=== PATIENT | male | born 1990 | race Caucasian/White ===

== ENCOUNTER 2019-12-11 09:47 | Emergency (ER) | payer BC ==
[2019-12-11 09:53] VITALS: RESP 18
--- NOTE | 2019-12-11 10:31 | ED ---
URI HPI - General Chief Complaint: Upper Respiratory Infection Stated Complaint: bronchitis/sinus infection Time Seen by Provider: 12/11/19 09:58 Source: patient Mode of arrival: ambulatory Limitations: no limitations - History of Present Illness Initial Comments: Patient is a 38-year-old male presenting to emergency Department with complaints of upper respiratory infection 4 days. Patient states he went to his PCP 2 days ago was started on a Z-Fercho and steroids for bronchitis however his symptoms have progressed. He continues to have shortness of breath and is coughing throughout the day. Patient states he has had a hard time sleeping secondary to the cough. He's been having intermittent hot flashes and chills. He denies any chest pains, nausea, vomiting, abdominal pain. He denies history of asthma or COPD. He denies being a smoker. He has no other complaints at this time. Upon arrival to the ER, patient is a tachycardia at 129, rest of vitals normal. - Related Data Previous Rx's Medication Instructions Recorded Albuterol Inhaler [Ventolin Hfa 1 - 2 puff INHALATION RT-Q6H PRN 12/11/19 Inhaler] #1 inhaler Allergies Allergy/AdvReac Type Severity Reaction Status Date / Time No Known Allergies Allergy Verified 12/11/19 09:50 Review of Systems ROS Statement: Those systems with pertinent positive or pertinent negative responses have been documented in the HPI. ROS Other: All systems not noted in ROS Statement are negative. Past Medical History Past Medical History: Asthma History of Any Multi-Drug Resistant Organisms: None Reported Past Surgical History: Cholecystectomy Past Psychological History: No Psychological Hx Reported Smoking Status: Never smoker Past Alcohol Use History: Occasional Past Drug Use History: None Reported General Exam - General Exam Comments Initial Comments: GENERAL: Well-appearing, well-nourished and in no acute distress. HEAD: Atraumatic, normocephalic. EYES: Pupils equal round and reactive to light, extraocular movements intact, sclera anicteric, conjunctiva are normal. ENT: TMs normal, nares patent, oropharynx clear without exudates. Moist mucous me mbranes. NECK: Normal range of motion, supple without lymphadenopathy or JVD. LUNGS: Breath sounds clear to auscultation bilaterally and equal. No wheezes rales or rhonchi. HEART: Tachycardic rate and rhythm without murmurs, rubs or gallops. ABDOMEN: Soft, nontender, normoactive bowel sounds. No guarding, no rebound. No masses appreciated. : Deferred EXTREMITIES: Normal range of motion, no pitting or edema. No clubbing or cyanosis. NEUROLOGICAL: Normal speech, normal gait. PSYCH: Normal mood, normal affect. SKIN: Warm, Dry, normal turgor, no rashes or lesions noted. Limitations: no limitations Course Vital Signs 12/11/19 12/11/19 09:50 11:36 Temperature 98.6 F 98.4 F Pulse Rate 129 H 106 H Respiratory 18 18 Rate Blood Pressure 123/64 119/71 O2 Sat by Pulse 96 98 Oximetry Medical Decision Making - Medical Decision Making Patient is a 29-year-old male presenting with cough for 4 days. Patient was seen by his PCP 2 days ago was started on azithromycin and steroids with no improvement in symptoms. Patient was tachycardia upon arrival, rest of vitals normal. Chest x-ray shows no acute abnormalities. Influenza is positive. I discussed these findings with the patient. Patient will discontinue use of antibiotic. He will continue with steroids and will be given a prescription for an inhaler to use as needed for cough and shortness of breath. He is in agreement with this plan of care. vitals are improved. He stable for discharge at this time. Return parameters were discussed with the patient he verbalizes understanding. Case discussed with Dr. Maloney. - Lab Data Lab Results 12/11/19 Range/Units 10:23 Influenza Type A RNA Not Detected (Not Detectd) Influenza Type B (PCR) Detected H (Not Detectd) Disposition Clinical Impression: Influenza Disposition: HOME SELF-CARE Condition: Stable Instructions (If sedation given, give patient instructions): Influenza (ED) Additional Instructions: Please return to the Emergency Department if symptoms worsen or any other concerns. Continue with steroids. Discontinue antibiotic. Use inhaler as needed for cough or shortness of breath. Prescriptions: Albuterol Inhaler [Ventolin Hfa Inhaler] 1 - 2 puff INHALATION RT-Q6H PRN #1 inhaler PRN Reason: Shortness Of Breath Is patient prescribed a controlled substance at d/c from ED?: No Referrals: Vinny Whitfield MD [Primary Care Provider] - 1-2 days
--- NOTE | 2019-12-11 10:57 | XR ---
EXAMINATION TYPE: XR chest 2V DATE OF EXAM: 12/11/2019 HISTORY: cough, fever. REFERENCE: Previous study dated 11/07/2016. FINDINGS: Lungs remain clear. There is some pleural thickening in the right apex. Pleural spaces are otherwise clear. Heart size is normal. No effusions are seen. IMPRESSION: NO ACUTE INTRATHORACIC ABNORMALITY.
[2019-12-11 11:37] VITALS: BP 119/71; PULSE 106; TEMP 98.4
== END 2019-12-11 11:37 | disposition home or self-care (01) ==
LOC: EC 09:47
DX: J11.1 Influenza due to unidentified influenza virus with other respiratory manifestations (principal)
CPT/HCPCS: 71046; 87502; 99283

== ENCOUNTER 2021-01-12 19:19 | Emergency (ER) | payer BC, OTHER ==
[2021-01-12 19:25] VITALS: TEMP 98.3
--- NOTE | 2021-01-12 19:47 | ED ---
Lower Extremity Injury HPI - General Chief Complaint: Extremity Injury, Lower Stated Complaint: IHS-toe injury Time Seen by Provider: 01/12/21 19:27 Source: patient Mode of arrival: ambulatory Limitations: no limitations - History of Present Illness Initial Comments: Dar is a 30-year-old male who presents the ER today for evaluation of injury to the left great toe. Patient reports he was at work when a spool of wire weighing nearly 1000 pounds fell landing on his foot. Patient was wearing steel toed boots. Patient reports he was able to work for approximately another half an hour but began feeling some throbbing in the home, he took of his boot and found that he was bleeding. He noted that his toenail seem to be partially avulsed. Because this was a work-related injury he was advised he needed to come to the emergency department for evaluation. - Related Data Previous Rx's Medication Instructions Recorded Albuterol Inhaler (Mhu) [Ventolin 1 - 2 puff INHALATION RT-Q6H PRN 12/11/19 Hfa Inhaler] #1 inhaler Allergies Allergy/AdvReac Type Severity Reaction Status Date / Time No Known Allergies Allergy Verified 01/12/21 19:24 Review of Systems ROS Statement: Those systems with pertinent positive or pertinent negative responses have been documented in the HPI. ROS Other: All systems not noted in ROS Statement are negative. Past Medical History Past Medical History: Asthma History of Any Multi-Drug Resistant Organisms: None Reported Past Surgical History: Cholecystectomy Past Psychological History: No Psychological Hx Reported Smoking Status: Never smoker Past Alcohol Use History: Occasional Past Drug Use History: None Reported General Exam - General Exam Comments Initial Comments: Physical Exam GENERAL: Patient is well-developed and well-nourished. Patient is nontoxic and well-hydrated and is in no distress. HENT: Normocephalic, Atraumatic. EYES: PERRL, EOMI PULMONARY: Unlabored respirations. CARDIOVASCULAR: RRR Warm and well perfused extremities ABDOMEN: Non-distended SKIN: No rashes or bruising Left great toenail partially avulsed, no active bleeding, : Deferred NEUROLOGIC: Alert and oriented Normal speech Normal gait MUSCULOSKELETAL: Moving all extremities with no apparent injury PSYCHIATRIC: No SI/HI Limitations: no limitations Course Vital Signs 01/12/21 19:22 Temperature 98.3 F Pulse Rate 78 Respiratory 20 Rate Blood Pressure 155/65 O2 Sat by Pulse 99 Oximetry Medical Decision Making - Medical Decision Making X-ray was obtained to rule out open fracture, no obvious fracture on x-ray Patient comfortable with plan for discharge home with supportive care Disposition Clinical Impression: Crushing injury of left great toe, initial encounter, Avulsed toenail Disposition: HOME SELF-CARE Condition: Stable Instructions (If sedation given, give patient instructions): Nail Avulsion (ED) Is patient prescribed a controlled substance at d/c from ED?: No Referrals: None,Stated [Primary Care Provider] - 1-2 days
--- NOTE | 2021-01-12 19:49 | XR ---
EXAMINATION TYPE: XR toes LT DATE OF EXAM: 01/12/2021 COMPARISON: NONE HISTORY: Wrist injury TECHNIQUE: 3 views FINDINGS: I see no fracture nor dislocation. The joint spaces are normal. There is some deformity of the nailbed with air under the nailbed consistent with soft tissue injury. IMPRESSION: Soft tissue deformity. No fracture seen.
[2021-01-12 21:20] VITALS: BP 142/87; PULSE 66; RESP 18
== END 2021-01-12 21:20 | disposition home or self-care (01) ==
LOC: EC 19:19
DX: S97.112A Crushing injury of left great toe, initial encounter (principal); Z90.49 Acquired absence of other specified parts of digestive tract; W23.0XXA Caught, crushed, jammed, or pinched between moving objects, initial encounter
CPT/HCPCS: 99283